=== PATIENT | female | born 1995 | race American Indian/Alaskan Native ===

== ENCOUNTER 2020-03-08 06:18 | Emergency (ER) | payer BC, OTHER ==
--- NOTE | 2020-03-08 07:07 | Emergency Department Report ---
HPI - General Chief Complaint: Extremity Injury, Upper Time Seen by Provider: 03/08/20 06:53 - HPI HPI: Room 29 The patient is a 24-year-old female present with a chief complaint of finger pain. The patient states approximately 5 days ago she went to sleep in her usual state of health when she awakened she had pain at the PIP of her left index finger the patient states the finger is red and swollen on the radial aspect of the finger. Patient denies any preceding trauma. The patient states the swelling and redness has resolved but the pain persists. ED Past Medical Hx - Past Medical History Previous Medical History?: Yes Hx GERD: Yes Hx Psychiatric Treatment: Yes (DEPRESSION) - Surgical History Past Surgical History?: No - Family History Family history: no significant - Social History Smoking Status: Never Smoker Substance Use Type: None (Denies illicit drug use), Alcohol (Occasional) - Medications Home Medications: Home Medications Medication Instructions Recorded Confirmed Last Taken Type Azithromycin [Zithromax TAB] 250 mg PO QDAY #5 tablet 12/22/15 Unknown Rx ARIPiprazole [Abilify TAB] 5 mg PO DAILY 12/25/15 12/25/15 11/01/15 History Ibuprofen [Motrin 800 MG tab] 800 mg PO Q8HR PRN #20 tablet 03/08/20 Unknown Rx traMADoL [Ultram] 50 mg PO Q6HR PRN #10 tablet 03/08/20 Unknown Rx ED Review of Systems ROS: Stated complaint: POSSIBLE SPRAIN/BROKEN FINGER Other details as noted in HPI Constitutional: no symptoms reported Eyes: denies: eye pain ENT: denies: throat pain Respiratory: no symptoms reported Cardiovascular: denies: chest pain Endocrine: no symptoms reported Gastrointestinal: denies: abdominal pain Genitourinary: denies: dysuria Musculoskeletal: joint swelling, arthralgia Skin: change in color Neurological: denies: headache Physical Exam - Physical Exam Vital Signs: Vital Signs 03/08/20 03/08/20 06:42 06:54 Temperature 98 F Pulse Rate 93 H Respiratory 16 16 Rate Blood Pressure 122/74 O2 Sat by Pulse 100 Oximetry Physical Exam: GENERAL: The patient is well-developed well-nourished female sitting in chair not appearing to be in acute distress. [] HEENT: Normocephalic. Atraumatic. Extraocular motions are intact. Patient has moist mucous membranes. NECK: Supple. Trachea midline CHEST/LUNGS: There is no respiratory distress noted. HEART/CARDIOVASCULAR: Regular. There is no tachycardia. 2+ left radial pulse. Normal capillary refill left index finger SKIN: There is no rash. There is no edema. There is no diaphoresis. There is no erythema to the left index finger. No evidence of paronychia or felon NEURO: The patient is awake, alert, and oriented. The patient is cooperative. The patient has no focal neurologic deficits. The patient has normal speech MUSCULOSKELETAL: There is no evidence of acute injury. ED Course Vital Signs 03/08/20 03/08/20 06:42 06:54 Temperature 98 F Pulse Rate 93 H Respiratory 16 16 Rate Blood Pressure 122/74 O2 Sat by Pulse 100 Oximetry ED Medical Decision Making - Radiology Data Radiology results: report reviewed (Left index finger x-ray), image reviewed (Left index finger x-ray) interpreted by me: Left index finger x-ray-no fracture seen, no foreign body seen, no dislocation seen [facility] [address] [place] [address] XRay Report Signed Patient: ARY AVALOS MR#: [id number] : 1995 Acct:[id number] Age/Sex: 24 / F ADM Date: 03/08/20 Loc: ED Attending Dr: Ordering Physician: JEREMY KELLER MD Date of Service: 03/08/20 Procedure(s): XR hand 3+V LT Accession Number(s): [id number] cc: JEREMY KELLER MD Fluoro Time In Minutes: XR hand 3+V LT INDICATION / CLINICAL INFORMATION: Left index finger pain. COMPARISON: None available. FINDINGS: No acute fracture. Normal alignment. Joint spaces are preserved. No destructive osseous lesion or suspicious periosteal reaction. Impression: 1.No significant osseous abnormality. Signer Name: Andrew Machado MD Signed: 03/08/2020 7:05 AM Workstation Name: [id number] Transcribed By: AMRITA Dictated By: Andrew Machado MD Electronically Authenticated By: Andrew Machado MD Signed Date/Time: 03/08/20704 DD/ 3 TD/TT: - Differential Diagnosis Arthralgia, insect bite, Critical care attestation.: If time is entered above; I have spent that time in minutes in the direct care of this critically ill patient, excluding procedure time. ED Disposition Clinical Impression: Finger pain, left Disposition: DC- TO HOME OR SELFCARE Is pt being admited?: No Does the pt Need Aspirin: No Condition: Stable Instructions: Pain Without a Known Cause Additional Instructions: Return to the emergency department should you develop worsening symptoms, inabi lity to tolerate food or liquids, high fever or any other concerns Prescriptions: Ibuprofen [Motrin 800 MG tab] 800 mg PO Q8HR PRN #20 tablet PRN Reason: Pain, Moderate (4-6) traMADoL [Ultram] 50 mg PO Q6HR PRN #10 tablet PRN Reason: Pain Referrals: NEETA SALAS MD [Staff Physician] - 3-5 Days (Dr. Salas is an orthopedic surgeon. Please follow-up with him or another orthopedic surgeon for further evaluation) Time of Disposition: 07:19
--- NOTE | 2020-03-08 07:09 | XRay Report ---
XR hand 3+V LT INDICATION / CLINICAL INFORMATION: Left index finger pain. COMPARISON: None available. FINDINGS: No acute fracture. Normal alignment. Joint spaces are preserved. No destructive osseous lesion or s uspicious periosteal reaction. Impression: 1.No significant osseous abnormality. Signer Name: Andrew Machado MD Signed: 03/08/2020 7:05 AM Workstation Name: [id number]
[2020-03-08 07:57] VITALS: BP 124/62
== END 2020-03-08 07:57 | disposition home or self-care (01) ==
LOC: ED 06:18
DX: M79.645 Pain in left finger(s) (principal); M79.89 Other specified soft tissue disorders; K21.9 Gastro-esophageal reflux disease without esophagitis; F32.9 Major depressive disorder, single episode, unspecified; Z79.1 Long term (current) use of non-steroidal anti-inflammatories (NSAID); Z79.899 Other long term (current) drug therapy

== ENCOUNTER 2020-11-13 16:49 | Emergency (ER) | payer SELFPAY ==
--- NOTE | 2020-11-13 17:54 | Emergency Department Report ---
ED Abdominal Pain HPI - General Chief Complaint: Abdominal Pain Stated Complaint: ABD PAIN/VAGINAL BLEEDING Time Seen by Provider: 11/13/20 17:40 Source: patient Mode of arrival: Ambulatory Limitations: No Limitations - History of Present Illness Initial Comments: Abdominal pain and vaginal bleeding. Patient actually states that she has been having abdominal pain and vaginal bleeding intermittently for the last month or 2. She tried to see her aviation safety technician today but they could not see her. They referred her here. Patient states that she believes her Mirena may be a problem. It has been 3 years. She believes it that is why she has had increas ed bleeding. She believes that is why she is having increased pain. 2 days ago, she has some sharp and stabbing lower abdominal pain. That has now resolved. She is now having some chest pain in the left parasternal area when she takes a deep breath. She does not feel short of breath. There is no cough or congestion. She states that that has been present for the last several days as well. It is more mild than the abdominal pain that she had. Regardless, she was directed here for further evaluation. - Related Data Home Medications Medication Instructions Recorded Confirmed Last Taken ARIPiprazole [Abilify TAB] 5 mg PO DAILY 12/25/15 12/25/15 11/01/15 Previous Rx's Medication Instructions Recorded Last Taken Type Azithromycin [Zithromax TAB] 250 mg PO QDAY #5 tablet 12/22/15 Unknown Rx Ibuprofen [Motrin 800 MG tab] 800 mg PO Q8HR PRN #20 tablet 03/08/20 Unknown Rx traMADoL [Ultram] 50 mg PO Q6HR PRN #10 tablet 03/08/20 Unknown Rx Allergies Allergy/AdvReac Type Severity Reaction Status Date / Time No Known Allergies Allergy Verified 12/22/15 00:46 ED Review of Systems ROS: Stated complaint: ABD PAIN/VAGINAL BLEEDING Other details as noted in HPI Comment: All other systems reviewed and negative Constitutional: denies: fever Eyes: denies: eye pain ENT: denies: throat pain Respiratory: denies: cough Cardiovascular: as per HPI Endocrine: denies: unexplained weight loss Gastrointestinal: as per HPI Genitourinary: denies: dysuria Musculoskeletal: denies: back pain Skin: denies: rash Neurological: denies: headache Hematological/Lymphatic: denies: easy bruising ED Past Medical Hx - Past Medical History Previous Medical History?: Yes Hx GERD: Yes Hx Psychiatric Treatment: Yes (DEPRESSION) - Family History Family history: hypertension - Social History Smoking Status: Never Smoker Substance Use Type: None (Denies illicit drug use), Alcohol (Occasional) - Medications Home Medications: Home Medications Medication Instructions Recorded Confirmed Last Taken Type Azithromycin [Zithromax TAB] 250 mg PO QDAY #5 tablet 12/22/15 Unknown Rx ARIPiprazole [Abilify TAB] 5 mg PO DAILY 12/25/15 12/25/15 11/01/15 History Ibuprofen [Motrin 800 MG tab] 800 mg PO Q8HR PRN #20 tablet 03/08/20 Unknown Rx traMADoL [Ultram] 50 mg PO Q6HR PRN #10 tablet 03/08/20 Unknown Rx ED Physical Exam - General Limitations: No Limitations General appearance: alert, in no apparent distress - Head Head exam: Present: atraumatic, normocephalic, normal inspection - Eye Eye exam: Present: normal appearance, PERRL, EOMI. Absent: scleral icterus - ENT ENT exam: Present: normal exam, normal orophraynx, mucous membranes moist - Neck Neck exam: Present: normal inspection. Absent: meningismus - Respiratory Respiratory exam: Present: normal lung sounds bilaterally. Absent: respiratory distress - Cardiovascular Cardiovascular Exam: Present: regular rate, normal rhythm - GI/Abdominal GI/Abdominal exam: Present: soft. Absent: tenderness - Extremities Exam Extremities exam: Absent: pedal edema, calf tenderness - Back Exam Back exam: Absent: CVA tenderness (R), CVA tenderness (L) - Neurological Exam Neurological exam: Present: alert, oriented X3, CN II-XII intact. Absent: motor sensory deficit - Psychiatric Psychiatric exam: Present: normal affect, normal mood - Skin Skin exam: Present: warm, dry ED Course Vital Signs 11/13/20 11/13/20 11/13/20 17:33 18:02 18:03 Temperature 99.1 F 98.1 F Pulse Rate 92 H 76 Respiratory 16 11 L Rate Blood Pressure 115/69 Blood Pressure 114/76 [Left] O2 Sat by Pulse 98 100 100 Oximetry 11/13/20 18:43 Temperature Pulse Rate 90 Respiratory 15 Rate Blood Pressure Blood Pressure 117/78 [Left] O2 Sat by Pulse 100 Oximetry - Reevaluation(s) Reevaluation #1: 09/15/21 17:54 IV and labs were ordered. ED Medical Decision Making - Lab Data Result diagrams: 11/13/20 18:04 11/13/20 18:04 - Medical Decision Making Patient presents with reports of abdominal pain and concerns for Mirena prob lems. She is not so ectopic is excluded. She is not anemic so she does not require transfusion. She does not want us to remove the Mirena. She has been referred to a aviation safety technician for this. She also reported some chest pain but does not have any evidence of pneumonia or pneumothorax. She is not hypoxic. She is not tachycardic. Other than the Mirena, which has been in for 3 years, she has no risk factor for pulmonary embolism. She certainly is Wells criteria negative. I do not believe further evaluation is necessary. Critical Care Time: No Critical care attestation.: If time is entered above; I have spent that time in minutes in the direct care of this critically ill patient, excluding procedure time. ED Disposition Clinical Impression: Vaginal bleeding, Left-sided chest pain, Lower abdominal pain Disposition: 01 HOME / SELF CARE / HOMELESS Is pt being admited?: No Does the pt Need Aspirin: No Condition: Stable Instructions: Abnormal Uterine Bleeding, Nonspecific Chest Pain, Adult, Abdominal Pain (ED) Additional Instructions: Drink plenty water. Return for problems. Follow-up with your regular doctor for recheck. Talk to your STRIP ROLLER about removing your Mirena. Return for problems. Referrals: PRIMARY CARE, [Primary Care Provider] - 3-5 Days Forms: Work/School Release Form(ED)
[2020-11-13 18:29] LABS: Hematocrit 39.3 % (30.3-42.9); Hemoglobin 13.7 gm/dl (10.1-14.3); Mean Corpuscular HGB Conc 35 % (30-34); Mean Corpuscular Volume 93 fl (79-97); Platelet Count 236 K/mm3 (140-440); Red Cell Distribution Width 12.6 % (13.2-15.2)
[2020-11-13 18:44] VITALS: BP 117/78
[2020-11-13 18:52] LABS: Blood Urea Nitrogen 6 mg/dL (7-17); Calcium 9.6 mg/dL (8.4-10.2); Hemolysis Index 5
[2020-11-13 18:56] LABS: BUN/Creatinine Ratio 10
--- NOTE | 2020-11-13 19:15 | XRay Report ---
XR chest routine 2V INDICATION / CLINICAL INFORMATION: pain COMPARISON: None available. FINDINGS: SUPPORT DEVICES: None. HEART / MEDIASTINUM: No significant abnormality. LUNGS / PLEURA: Lungs are clear. Costophrenic sulci are sharp. No pneumothorax. ADDITIONAL FINDINGS: No significant additional findings. IMPRESSION: 1. No acute findings. Signer Name: Andrew Machado MD Signed: 11/13/2020 7:11 PM Workstation Name: [id number]
== END 2020-11-13 19:28 | disposition home or self-care (01) ==
LOC: ED 16:49
DX: N93.9 Abnormal uterine and vaginal bleeding, unspecified (principal); R07.9 Chest pain, unspecified; R10.30 Lower abdominal pain, unspecified
CPT/HCPCS: 36415; 71046; 80048; 84703; 85027; 99283